=== PATIENT | female | born 1955 | race Caucasian/White ===

== ENCOUNTER 2019-03-21 09:09 | Emergency (ER) | payer OTHER ==
[~2019-03-21] VITALS: Ht 172.7 cm; Wt 106.6 kg
[2019-03-21] MEDS ORDERED: TRAZ100 PO (10:07)
[2019-03-21] MEDS ORDERED: OXYB5 PO (10:08)
[2019-03-21] MEDS ORDERED: ATOR80 PO (10:08)
[2019-03-21] MEDS ORDERED: DOXY100 PO (10:08)
[2019-03-21] MEDS ORDERED: ESCI20 PO (10:08)
[2019-03-21] MEDS ORDERED: LORA.5 PO (10:09)
[2019-03-21] MEDS ORDERED: CYCL10 PO (10:09)
[2019-03-21] MEDS ORDERED: BUPR150T2 PO (10:09)
[2019-03-21] MEDS ORDERED: HYDR1TAB94 PO (11:10)
== END 2019-03-21 11:19 | disposition home or self-care (01) ==
LOC: ER 09:09
DX: S53.402A Unspecified sprain of left elbow, initial encounter (principal); E11.9 Type 2 diabetes mellitus without complications; I10 Essential (primary) hypertension; X50.1XXA Overexertion from prolonged static or awkward postures, initial encounter; Y93.52 Activity, horseback riding
CPT/HCPCS: 73080; 99283-25